=== PATIENT | female | born 1985 | race Caucasian/White ===

== ENCOUNTER 2022-08-13 08:00 | Outpatient (CLI) | payer BC, OTHER ==
[2022-08-13 16:50] LABS: BILIRUBIN,URINE NEGATIVE (NEGATIVE); GLUCOSE, URINE (UA) NEGATIVE (NEGATIVE); KETONES,URINE (UA) NEGATIVE (NEGATIVE); LEUKOCYTE ESTERASE, URINE MODERATE (NEGATIVE); NITRITE,URINE NEGATIVE (NEGATIVE); OCCULT BLOOD,URINE SMALL (NEGATIVE); PH,URINE 6.5 PH (5.0-7.5); PROTEIN,URINE NEGATIVE (NEGATIVE); UROBILINOGEN,URINE 0.2 (NORMAL) E.U./dL (NORMAL)
[2022-08-13 17:41] LABS: BACTERIA,URINE Many /HPF (None Seen); CLARITY,URINE HAZY (CLEAR); SQUAMOUS EPITHELIAL CELL,UR MANY Squamous (<= Few); WBC CLUMPS,URINE PRESENT; WBC,URINE >25 /HPF (0-5)
== END 2022-08-13 23:59 | disposition home or self-care (01) ==
LOC: LAB 08:00
PROVIDERS: ATTEND Nurse Practitioner
DX: Z34.90 Encounter for supervision of normal pregnancy, unspecified, unspecified trimester (principal)
CPT/HCPCS: 81001; 87086

== ENCOUNTER 2022-08-27 08:34 | Outpatient (CLI) | payer BC ==
[2022-08-27 08:59] LABS: BASOPHILS # (AUTO) 0.1 10^3/uL (0.0-0.1); EOSINOPHILS # (AUTO) 0.1 10^3/uL (0.0-0.7); HCT - HEMATOCRIT 41.5 % (37.0-47.0); HGB - HEMOGLOBIN 13.9 g/dL (12.0-16.0); LYMPHOCYTES # (AUTO) 1.7 10^3/uL (1.5-3.5); LYMPHOCYTES % (AUTO) 33.2 %; MEAN CORPUSCULAR HEMOGLOBIN 30.3 pg (27.0-31.0); MEAN CORPUSCULAR HGB CONC 33.5 g/dL (32.0-36.0); MEAN CORPUSCULAR VOLUME 90.6 fL (81.0-99.0); MONOCYTES # (AUTO) 0.4 10^3/uL (0.0-1.0); MONOCYTES % (AUTO) 7.8 %; NEUTROPHILS # (AUTO) 2.9 10^3/uL (1.5-6.6); NEUTROPHILS % (AUTO) 56.6 %; PLT - PLATELET COUNT 195 10^3/uL (130-450); RED BLOOD COUNT 4.58 10^6/uL (4.20-5.40); RED CELL DISTRIBUTION WIDTH 13.4 % (12.0-15.0)
[2022-08-28 02:07] LABS: HBsAG SCREEN Negative (Negative)
[2022-08-28 05:12] LABS: RPR Non Reactive (Non Reactive)
[2022-08-28 08:10] LABS: VARICELLA-ZOSTER AB IGG 312 index (Immune >165)
[2022-08-29 00:08] LABS: HIV SCREEN 4TH GENERATION Non Reactive (Non Reactive)
== END 2022-08-27 08:35 | disposition home or self-care (01) ==
LOC: LAB 08:34
PROVIDERS: ATTEND Nurse Practitioner
DX: Z34.90 Encounter for supervision of normal pregnancy, unspecified, unspecified trimester (principal)
CPT/HCPCS: 36415; 85025; 86592; 86762; 86787; 86803; 86850; 86900; 86901; 87340; 87389

== ENCOUNTER 2022-08-28 18:57 | Outpatient (CLI) | payer BC ==
--- NOTE | 2022-08-29 10:10 | Ultrasound Report ---
PROCEDURE: OB First Trimester w/TV INDICATIONS: POSITIVE TEST OUTSIDE/PRIOR DATING DATA: Last menstrual period (LMP): 07/02/2022. LMP-based estimated date of delivery (RENNY): 04/08/2023. First dating scan (date and location): 08/28/2022. Estimated date of delivery (RENNY) from first dating scan: 04/12/2023. The below data below was generated using the ultrasound RENNY of 04/12/2023 TECHNIQUE: Real-time scanning was performed of the fetus and maternal pelvic organs, with image documentation. Endovaginal scanning was also performed to better visualize the fetus and maternal ovaries. COMPARISON: None. FINDINGS: Single living intrauterine . Embryo: 1.3 cm, 7 weeks 4 days. Heart rate: 150 bpm. Tiny perigestational fluid collection measuring 1.0 x 0.9 x 1.2 cm. Measurement variability in dating: +/- 4 weeks by LMP, +/- 7 days by mean sac diameter (use before 6 weeks gestation if crown-rump length not able to be measured), +/- 5 days by crown-rump length (6-12 weeks gestation). Maternal organs: Ovaries are unremarkable. IMPRESSION: Single living intrauterine at 7 weeks 4 days, RENNY of 04/12/2023. Tiny perigestational fluid collection. Reviewed by: Demetrio Holguin on 08/29/2022 10:09 AM PDT Approved by: Demetrio Holguin on 08/29/2022 10:09 AM PDT Station ID: [id number]
== END 2022-08-28 18:58 | disposition home or self-care (01) ==
LOC: DI 18:57
PROVIDERS: ATTEND Nurse Practitioner
DX: Z34.91 Encounter for supervision of normal pregnancy, unspecified, first trimester (principal)

== ENCOUNTER 2022-09-10 08:00 | Outpatient (CLI) | payer BC ==
[2022-09-10 11:36] LABS: BILIRUBIN,URINE NEGATIVE (NEGATIVE); GLUCOSE, URINE (UA) NEGATIVE (NEGATIVE); KETONES,URINE (UA) NEGATIVE (NEGATIVE); LEUKOCYTE ESTERASE, URINE SMALL (NEGATIVE); NITRITE,URINE NEGATIVE (NEGATIVE); OCCULT BLOOD,URINE MODERATE (NEGATIVE); PROTEIN,URINE NEGATIVE (NEGATIVE); UROBILINOGEN,URINE 0.2 (NORMAL) E.U./dL (NORMAL)
[2022-09-10 11:38] LABS: CLARITY,URINE CLEAR (CLEAR)
[2022-09-10 12:17] LABS: BACTERIA,URINE Few /HPF (None Seen); RBC,URINE 0-5 /HPF (0-5); SQUAMOUS EPITHELIAL CELL,UR MOD Squamous (<= Few)
[2022-09-10 17:59] LABS: CHLAMYDIA TRACHOMATIS DNA NEGATIVE (NEGATIVE); NEISSERIA GONORRHOEAE DNA NEGATIVE (NEGATIVE); TRICHOMONAS VAGINALIS DNA NEGATIVE (NEGATIVE)
== END 2022-09-10 23:59 | disposition home or self-care (01) ==
LOC: LAB.WC 08:00
PROVIDERS: ATTEND Nurse Practitioner
DX: Z34.90 Encounter for supervision of normal pregnancy, unspecified, unspecified trimester (principal); Z11.3 Encounter for screening for infections with a predominantly sexual mode of transmission
CPT/HCPCS: 81001; 87086; 87491; 87591; 87661

== ENCOUNTER 2022-12-10 14:17 | Outpatient (CLI) | payer BC | END 2022-12-10 14:18 | disposition home or self-care (01) | LOC: LAB 14:17 | PROVIDERS: ATTEND Obstetrics & Gynecology | DX: Z32.01 Encounter for pregnancy test, result positive (principal) | CPT/HCPCS: 36415; 84702 ==

== ENCOUNTER 2022-12-12 14:13 | Outpatient (CLI) | payer BC | END 2022-12-12 14:14 | disposition home or self-care (01) | LOC: LAB.N 14:13 | PROVIDERS: ATTEND Obstetrics & Gynecology | DX: Z53.9 Procedure and treatment not carried out, unspecified reason (principal) | CPT/HCPCS: 36415; 84702 ==

== ENCOUNTER 2022-12-12 15:05 | Outpatient (CLI) | payer BC | END 2022-12-12 15:06 | disposition home or self-care (01) | LOC: LAB 15:05 | PROVIDERS: ATTEND Obstetrics & Gynecology | DX: O20.0 Threatened abortion (principal) | CPT/HCPCS: 36415; 84702 ==

== ENCOUNTER 2023-01-04 18:11 | Outpatient (CLI) | payer BC ==
--- NOTE | 2023-01-05 01:45 | Ultrasound Report ---
PROCEDURE: Pelvic w/Transvaginal INDICATIONS: THREATENED SPONTANEOUS OUTSIDE/PRIOR DATING DATA: Last menstrual period (LMP): 10/30/2022. LMP-based estimated date of delivery (RENNY): 08/06/2023. First dating scan (date and location): 01/04/2023. Estimated date of delivery (RENNY) from first dating scan: 08/09/2023. TECHNIQUE: Real-time scanning was performed of the fetus and maternal pelvic organs, with image documentation. Endovaginal scanning was also performed to better visualize the fetus and maternal ovaries. COMPARISON: None from this . FINDINGS: Intrauterine gestational sac present. Embryo: There is an intrauterine gestational sac seen, with a pole present, which measures 2.2 6 cm, which corresponds to an estimated gestational age of 9 weeks 0 days. cardiac activity is seen, with a measured heart rate of 173 bpm. Moderate perigestational/subchorionic hemorrhage can b e seen, which measures 2.3 x 1.8 x 2.8 cm. Measurement variability in dating: +/- 4 weeks by LMP, +/- 7 days by mean sac diameter (use before 6 weeks gestation if crown-rump length not able to be measured), +/- 5 days by crown-rump length (6-12 weeks gestation). Maternal organs: Ovaries appear within normal limits, with note made of a left ovarian corpus luteum . IMPRESSION: Single live intrauterine . Moderate subchorionic hemorrhage can be seen. No significant discrepancy is found between the estimated gestational age based upon these images and the estimated gestational age based upon the given date of the last menstrual period. Close clinical follow-up with serial beta hCG measurements and serial ultrasound would be recommended , as clinically appropriate. Reviewed by: Lm Frazier MD on 01/05/2023 12:43 AM RAY Approved by: Lm Frazier MD on 01/05/2023 12:43 AM RAY Station ID: [id number]
== END 2023-01-04 18:12 | disposition home or self-care (01) ==
LOC: DI 18:11
PROVIDERS: ATTEND Obstetrics & Gynecology
DX: O20.8 Other hemorrhage in early pregnancy (principal); Z3A.00 Weeks of gestation of pregnancy not specified

== ENCOUNTER 2023-01-10 08:00 | Outpatient (CLI) | payer BC ==
[2023-01-10 15:22] LABS: BILIRUBIN,URINE NEGATIVE (NEGATIVE); GLUCOSE, URINE (UA) NEGATIVE (NEGATIVE); KETONES,URINE (UA) NEGATIVE (NEGATIVE); LEUKOCYTE ESTERASE, URINE TRACE (NEGATIVE); NITRITE,URINE NEGATIVE (NEGATIVE); OCCULT BLOOD,URINE NEGATIVE (NEGATIVE); PROTEIN,URINE NEGATIVE (NEGATIVE); UROBILINOGEN,URINE 0.2 (NORMAL) E.U./dL (NORMAL)
[2023-01-10 15:32] LABS: CLARITY,URINE CLEAR (CLEAR)
[2023-01-10 15:42] LABS: BACTERIA,URINE Few /HPF (None Seen); RBC,URINE None Seen /HPF (0-5); SQUAMOUS EPITHELIAL CELL,UR FEW Squamous (<= Few)
== END 2023-01-10 23:59 | disposition home or self-care (01) ==
LOC: LAB.WC 08:00
PROVIDERS: ATTEND Nurse Practitioner
DX: Z34.90 Encounter for supervision of normal pregnancy, unspecified, unspecified trimester (principal)
CPT/HCPCS: 81001; 87086

== ENCOUNTER 2023-02-04 08:00 | Outpatient (CLI) | payer BC ==
[2023-02-04 21:30] LABS: CHLAMYDIA TRACHOMATIS DNA NEGATIVE (NEGATIVE); NEISSERIA GONORRHOEAE DNA NEGATIVE (NEGATIVE); TRICHOMONAS VAGINALIS DNA NEGATIVE (NEGATIVE)
== END 2023-02-04 23:59 | disposition home or self-care (01) ==
LOC: LAB.WC 08:00
PROVIDERS: ATTEND Nurse Practitioner
DX: Z11.3 Encounter for screening for infections with a predominantly sexual mode of transmission (principal)
CPT/HCPCS: 87491; 87591; 87661

== ENCOUNTER 2023-02-12 13:46 | Outpatient (CLI) | payer BC ==
[2023-02-12 14:01] LABS: BASOPHILS % (AUTO) 0.4 %; EOSINOPHILS % (AUTO) 0.5 %; HCT - HEMATOCRIT 40.1 % (37.0-47.0); HGB - HEMOGLOBIN 13.5 g/dL (12.0-16.0); LYMPHOCYTES % (AUTO) 23.2 %; MEAN CORPUSCULAR HEMOGLOBIN 30.3 pg (27.0-31.0); MEAN CORPUSCULAR HGB CONC 33.7 g/dL (32.0-36.0); MEAN CORPUSCULAR VOLUME 89.9 fL (81.0-99.0); MEAN PLATELET VOLUME 10.8 fL (7.9-10.8); MONOCYTES # (AUTO) 0.4 10^3/uL (0.0-1.0); MONOCYTES % (AUTO) 4.4 %; NEUTROPHILS # (AUTO) 6.1 10^3/uL (1.5-6.6); NEUTROPHILS % (AUTO) 71.1 %; PLT - PLATELET COUNT 195 10^3/uL (130-450); RED BLOOD COUNT 4.46 10^6/uL (4.20-5.40); RED CELL DISTRIBUTION WIDTH 12.9 % (12.0-15.0); WHITE BLOOD COUNT 8.6 x10^3/uL (4.8-10.8)
== END 2023-02-12 13:47 | disposition home or self-care (01) ==
LOC: LAB 13:46
PROVIDERS: ATTEND Nurse Practitioner
DX: Z34.90 Encounter for supervision of normal pregnancy, unspecified, unspecified trimester (principal); Z36.89 Encounter for other specified antenatal screening
CPT/HCPCS: 36415; 85025; 86850

== ENCOUNTER 2023-03-19 15:04 | Outpatient (CLI) | payer BC ==
--- NOTE | 2023-03-20 17:54 | Ultrasound Report ---
PROCEDURE: OB Detailed Eval INDICATIONS: SUPERVISION OF OUTSIDE/PRIOR DATING DATA: Last menstrual period (LMP): 10/30/2022. LMP-based estimated date of delivery (RENNY): 01/01/2024. First dating scan (date and location): 01/04/2023. Estimated date of delivery (RENNY) from first dating scan: 08/09/2023. The below data below was generated using the working RENNY of 08/09/2023 TECHNIQUE: Ultrasound of the gravid uterus was performed and recorded. COMPARISON: None. FINDINGS: General: A single live intrauterine gestation is present. Presentation: Cephalic Placenta: Placental position is posterior without previa. Amniotic fluid index: 17.6 cm, 80th percentile for gestational age. heart rate: 150 beats per minute. Maternal cervical canal: 3.7 cm long; normal length is 2.5 cm or more. biometrics: Biparietal diameter: 5.1 cm, 21 week 3 day, 98 percentile Head circumference: 18.2 cm, 20 week 4 day, 86 percentile Abdominal circumference: 15.4 cm, 20 week 4 day, 78 percentile Femur length: 3.2 cm, 20 week 0 day, 59th percentile Estimated gestational age by working dates: 19 week 4 day Composite gestational age by current ultrasound: 20 week 5 day Estimated weight and percentile: 352 g, 89th percentile Measurement variability in biometric dating: +/- 10 days from 12-20 weeks gestation, +/- 2 weeks from 20-30 weeks gestation, +/- 3 weeks at 30 weeks gestation or more. Anatomic survey: Neuro: Ventricles are non-dilated at less than 10 mm. Cisterna magna is normal at 3-11 mm. Cerebel lum is normal in size and morphology. Nuchal skin fold: Normal at less than 6 mm between 14-20 weeks gestational age. Face: Nose and lips, facial profile are normal. Spine: No evidence for spina bifida. Heart: 4-chambered heart is present, with normal ventricular outflow tracts. Incidental echogenic f ocus in the left ventricular outflow tract Diaphragm: Diaphragm is intact. Stomach: Left-sided stomach is present. Kidneys: No hydronephrosis. Normal is less than 5 mm in 2nd trimester, less than 7 mm in 3rd trimester. Cord: 3-vessel cord has orthotopic insertion. Bladder: Normal in size. Extremities: All 4 extremities identified. Other: Not applicable. IMPRESSION: Single live intrauterine consistent with 20 week 5 day with gestation by current ultrasound Incidental left ventricular intracardiac echogenic focus Reviewed by: Andrei Damon MD on 03/20/2023 4:52 PM [facility] Approved by: Andrei Damon MD on 03/20/2023 4:52 PM [facility] Station ID: [id number]
== END 2023-03-19 15:05 | disposition home or self-care (01) ==
LOC: DI 15:04
PROVIDERS: ATTEND Nurse Practitioner
DX: Z34.92 Encounter for supervision of normal pregnancy, unspecified, second trimester (principal); Z36.89 Encounter for other specified antenatal screening

== ENCOUNTER 2023-03-20 10:02 | Outpatient (CLI) | payer BC ==
[2023-03-22 22:06] LABS: AFP VALUE 62.7 ng/mL (.); GEST. AGE ON COLLECTION DATE 18.4 weeks (.); INSULIN DEP DIABETES No (.); MULTIPLE GESTATION No (.); OPEN SPINA BIFIDA RISK 1 IN 2100 (.); RACE Caucasian (.); RESULTS Report (.); TEST RESULTS *Screen Negative* (.); WEIGHT 197 lbs (.)
== END 2023-03-20 10:03 | disposition home or self-care (01) ==
LOC: LAB 10:02
PROVIDERS: ATTEND Nurse Practitioner
DX: O09.522 Supervision of elderly multigravida, second trimester (principal)
CPT/HCPCS: 36415; 82105

== ENCOUNTER 2023-05-06 11:14 | Outpatient (CLI) | payer BC ==
[2023-05-06 12:23] LABS: HCT - HEMATOCRIT 37.6 % (37.0-47.0); HGB - HEMOGLOBIN 12.1 g/dL (12.0-16.0); MEAN CORPUSCULAR HEMOGLOBIN 29.7 pg (27.0-31.0); MEAN CORPUSCULAR HGB CONC 32.2 g/dL (32.0-36.0); MEAN CORPUSCULAR VOLUME 92.2 fL (81.0-99.0); MEAN PLATELET VOLUME 10.8 fL (7.9-10.8); RED BLOOD COUNT 4.08 10^6/uL (4.20-5.40); RED CELL DISTRIBUTION WIDTH 13.3 % (12.0-15.0); WHITE BLOOD COUNT 9.8 x10^3/uL (4.8-10.8)
== END 2023-05-06 11:15 | disposition home or self-care (01) ==
LOC: LAB 11:14
PROVIDERS: ATTEND Nurse Practitioner
DX: O09.522 Supervision of elderly multigravida, second trimester (principal)
CPT/HCPCS: 36415; 82950; 85027

== ENCOUNTER 2023-06-28 12:26 | Outpatient (CLI) | payer BC ==
--- NOTE | 2023-07-01 14:22 | Ultrasound Report ---
PROCEDURE: OB Follow up INDICATIONS: UTERINE SIZE DATE DISCREPENCY OUTSIDE/PRIOR DATING DATA: Last menstrual period (LMP): 10/29/2022. LMP-based estimated date of delivery (RENNY): 08/06/2023. First dating scan (date and location): 01/04/2023. Estimated date of delivery (RENNY) from first dating scan: 08/09/2023. The below data below was generated using the ultrasound RENNY of 08/09/2023 TECHNIQUE: Real-time scanning was performed of the fetus, with image documentation and biometric measurements. Endovaginal scanning: Not performed. COMPARISON: None. FINDINGS: General: A single living intrauterine gestation is present. Presentation: Cephalic Placenta: Placental position is posterior, without previa. Amniotic fluid index: 22.5 cm, 90.1 percentile for gestational age. heart rate: 137 beats per minute. Maternal cervical canal: 3.9 cm long; normal length is 2.5 cm or more. biometrics: Biparietal diameter: 9.1 cm, 37 weeks 0 days, 98th percentile Head circumference: 32.3 cm, 36 weeks 4 days, 78.4 percentile Abdominal circumference: 30.9 cm, 34 weeks 6 days, 79 percentile Femur length: 7.1 cm, 36 weeks 4 days, 94 percentile Estimated gestational age from initial scan: 34 weeks 0 days Composite gestational age from present scan: 36 weeks 2 days Estimated weight and percentile: 2761 g, 90th percentile Measurement variability in biometric dating: +/- 10 days from 12-20 weeks gestation, +/- 2 weeks from 20-30 weeks gestation, +/- 3 weeks at 30 weeks gestation or more. Other: Not applicable. IMPRESSION: Single living intrauterine at 34 weeks 0 days, RENNY of 08/09/2023. Estimated weight of 2761 g, 90th percentile. LETTY of 22.5 cm. Reviewed by: Demetrio Holguin MD on 07/01/2023 2:21 PM PST Approved by: Demetrio Holguin MD on 07/01/2023 2:21 PM PST Station ID: [id number]
== END 2023-06-28 12:27 | disposition home or self-care (01) ==
LOC: DI 12:26
PROVIDERS: ATTEND Nurse Practitioner
DX: O26.843 Uterine size-date discrepancy, third trimester (principal); Z3A.34 34 weeks gestation of pregnancy

== ENCOUNTER 2023-07-11 08:00 | Outpatient (CLI) | payer BC | END 2023-07-11 23:59 | disposition home or self-care (01) | LOC: LAB.WC 08:00 | PROVIDERS: ATTEND Nurse Practitioner | DX: Z36.85 Encounter for antenatal screening for Streptococcus B (principal) | CPT/HCPCS: 87797 ==

== ENCOUNTER 2023-07-18 08:57 | Outpatient (CLI) | payer BC ==
--- NOTE | 2023-07-18 09:17 | PROCEDURE REPORT ---
- HPI Diagnosis/Indication for NST: Other (Advanced maternal age) - Results and Plan Plan: Patient is a 38-year-old -0-1-0 at 37 weeks 2 days gestation here for NST. NST Performed 07/18/2023 NST Read 07/18/2023 FHT: 140 bpm baseline, moderate variability, accelerations present, no decelerations. Reactive NST [place]: Quiescent Diagnosis 37 weeks gestation Advanced maternal age Continue with scheduled OB care
[2023-07-18 09:23] VITALS: BP 115/86; O2SAT 98
== END 2023-07-18 09:38 | disposition home or self-care (01) ==
LOC: WFO 08:57 → FBP 09:00 → WFO 09:38
PROVIDERS: ATTEND Obstetrics & Gynecology
DX: O09.523 Supervision of elderly multigravida, third trimester (principal); Z3A.37 37 weeks gestation of pregnancy
CPT/HCPCS: 59025

== ENCOUNTER 2023-07-23 10:42 | Outpatient (CLI) | payer BC ==
--- NOTE | 2023-07-23 12:46 | Ultrasound Report ---
PROCEDURE: OB Follow up INDICATIONS: UTERINE SIZE DATE DISCREPENCY OUTSIDE/PRIOR DATING DATA: Last menstrual period (LMP): 10/30/2022. LMP-based estimated date of delivery (RENNY): 08/06/2023. First dating scan (date and location): 01/04/2023. Estimated date of delivery (RENNY) from first dating scan: 08/09/2023. TECHNIQUE: Real-time scanning was performed of the fetus, with image documentation and biometric measurements. COMPARISON: 06/28/2023 FINDINGS: General: A single living intrauterine gestation is present. Presentation: Cephalic Placenta: Placental position is posterior, without previa. Amniotic fluid index: 22.5 cm, at the upper limit of normal for gestational age. heart rate: 137 beats per minute. Maternal cervical canal: 3.9 cm long; normal length is 2.5 cm or more. biometrics: Biparietal diameter: 9.13 cm, 37 weeks, 98th percentile Head circumference: 32.3 cm, 36 weeks and 4 days, 78.4 percentile Abdominal circumference: 30.9 cm, 34 weeks and 6 days, 79 percentile Femur length: 7.14 cm, 36 weeks and 4 days, 94th percentile Estimated gestational age from initial scan: 34 weeks Composite gestational age from present scan: 36 weeks and 2 days Estimated weight and percentile: 2761 g, 89.9 percentile Measurement variability in biometric dating: +/- 10 days from 12-20 weeks gestation, +/- 2 weeks from 20-30 weeks gestation, +/- 3 weeks at 30 weeks gestation or more. Other: Not applicable. IMPRESSION: Living intrauterine gestation at 34 weeks. EFW and LETTY are at the upper limit of normal (22.5 cm, 89.9 percentile). Consider continued clinical and possible imaging follow-up. Reviewed by: Julius Arreola MD on 07/23/2023 12:44 PM PDT Approved by: Julius Arreola MD on 07/23/2023 12:44 PM PDT Station ID: [id number]
== END 2023-07-23 10:43 | disposition home or self-care (01) ==
LOC: DI 10:42
PROVIDERS: ATTEND Nurse Practitioner
DX: O26.843 Uterine size-date discrepancy, third trimester (principal); Z3A.34 34 weeks gestation of pregnancy

== ENCOUNTER 2023-07-25 08:55 | Outpatient (CLI) | payer BC ==
[2023-07-25 09:15] VITALS: BP 132/90
[2023-07-25 09:45] LABS: HCT - HEMATOCRIT 35.6 % (37.0-47.0); HGB - HEMOGLOBIN 11.2 g/dL (12.0-16.0); MEAN CORPUSCULAR HEMOGLOBIN 26.9 pg (27.0-31.0); MEAN CORPUSCULAR HGB CONC 31.5 g/dL (32.0-36.0); MEAN CORPUSCULAR VOLUME 85.6 fL (81.0-99.0); MEAN PLATELET VOLUME 12.1 fL (7.9-10.8); RED BLOOD COUNT 4.16 10^6/uL (4.20-5.40); RED CELL DISTRIBUTION WIDTH 14.6 % (12.0-15.0); WHITE BLOOD COUNT 7.8 x10^3/uL (4.8-10.8)
[2023-07-25 10:01] LABS: ALBUMIN 3.2 g/dL (3.2-5.5); ALBUMIN/GLOBULIN RATIO 1.2 (1.0-2.2); BILIRUBIN,TOTAL 0.7 mg/dL (0.2-1.0); CALCIUM 9.1 mg/dL (8.5-10.3); CREATININE 0.6 mg/dL (0.6-1.3); TOTAL PROTEIN 5.9 g/dL (6.4-8.9)
[2023-07-25 10:10] LABS: PROTEIN/CREATININE RATIO,URINE 0.2 (<=0.2)
--- NOTE | 2023-07-25 20:29 | PROCEDURE REPORT ---
- HPI Diagnosis/Indication for NST: Other (AMA) Current EDU 08/06/23 Gestation 38 Weeks and 2 Days 2 Para 0 Vital Signs Temperature 98.2 F 07/25/23 09:10 Heart Rate 68 07/25/23 09:10 Respiratory Rate 16 07/25/23 09:10 Blood Pressure 132/90 H 07/25/23 09:10 Temperature 98.2 F 07/25/23 09:10 Heart Rate 68 07/25/23 09:10 Respiratory Rate 16 07/25/23 09:10 Blood Pressure 132/90 H 07/25/23 09:10 O2 Saturation If not protocol: Oxygen Flow, liters/minute - NST Procedure NST Procedure Start Date 07/25/23 Start Time 09:03 Stop Time 09:40 Vibroacoustic Stimulation Used No Patient States Movement Yes Reactive for of 32 weeks gestation or more. NST tracing contains at least two heart rate accelerations that are at least 15 beats per minute above the baseline rate and lasting at least 15 seconds from onset to return to baseline within a twenty minute period. - Results and Plan Findings/Impression: reactive NST bp borderline. labs checked and normal. will continue to follow. Plan: care as scheduled.
== END 2023-07-25 09:50 | disposition home or self-care (01) ==
LOC: WFO 08:55 → FBP 08:59 → WFO 09:50
PROVIDERS: ATTEND Obstetrics & Gynecology
DX: O26.843 Uterine size-date discrepancy, third trimester (principal); Z3A.38 38 weeks gestation of pregnancy
CPT/HCPCS: 36415; 59025; 80053; 82570; 84156; 84550; 85027

== ENCOUNTER 2023-08-01 10:18 | Outpatient (CLI) | payer BC ==
[2023-08-01 10:54] VITALS: BP 129/86; O2SAT 99
--- NOTE | 2023-08-01 18:23 | PROCEDURE REPORT ---
- HPI Diagnosis/Indication for NST: Other (Advanced maternal age) Current EDU 08/06/23 Gestation 39 Weeks and 2 Days 2 Para 0 Vital Signs Temperature 98.8 F 08/01/23 10:43 Heart Rate 66 08/01/23 10:43 Respiratory Rate 16 08/01/23 10:43 Blood Pressure 129/86 H 08/01/23 10:43 O2 Saturation 99 08/01/23 10:43 Temperature 98.1 F 08/01/23 11:09 Heart Rate 66 08/01/23 10:43 Respiratory Rate 16 08/01/23 10:43 Blood Pressure 129/86 H 08/01/23 10:43 O2 Saturation 99 08/01/23 10:43 If not protocol: Oxygen Flow, liters/minute - NST Procedure NST Procedure Start Date 08/01/23 Start Time 10:35 Stop Time 11:09 Vibroacoustic Stimulation Used No Patient States Movement Yes - Results and Plan Plan: Patient is a 38-year-old -0-1-0 at 39 weeks 1 day gestation here for NST. NST Performed 08/01/2023 NST Read 08/01/2023 FHT: 140 bpm baseline, moderate variability, accelerations present, no decelerations. Reactive NST [place]: Quiescent Diagnosis 39 weeks gestation Advanced maternal age Continue with scheduled OB care
== END 2023-08-01 11:09 | disposition home or self-care (01) ==
LOC: WFO 10:18 → FBP 10:25 → WFO 11:09
PROVIDERS: ATTEND Obstetrics & Gynecology
DX: O09.523 Supervision of elderly multigravida, third trimester (principal); Z3A.39 39 weeks gestation of pregnancy
CPT/HCPCS: 59025

== ENCOUNTER 2023-08-04 20:03 | Inpatient (IN) | payer BC ==
[2023-08-04] MEDS ORDERED: miSOPROStoL 200 MCG TABLET PR PRN ×2 (21:18→23:53)
[2023-08-04] MEDS ORDERED: hydrALAZINE INJ 20 MG/ML VIAL IVP PRN ×4 (21:18→23:53)
[2023-08-04] MEDS ORDERED: ACETAMINOPHEN 500 MG TABLET PO PRN ×3 (21:18→23:59)
[2023-08-04] MEDS ORDERED: CARBOPROST TROMETHAMINE 250 MCG/ML VIAL IM PRN ×2 (21:18→23:53)
[2023-08-04] MEDS ORDERED: METHYLERGONOVINE 0.2 MG/ML VIAL IM PRN ×2 (21:18→23:53)
[2023-08-04] MEDS ORDERED: NIFEdipine 10 MG CAPSULE PO PRN ×2 (21:18→23:53)
[2023-08-04] MEDS ORDERED: SODIUM CHLORIDE FLUSH 0.9% 10 ML SYRINGE IVP PRN (21:18)
[2023-08-04] MEDS ORDERED: METOCLOPRAMIDE 10 MG/2 ML VIAL IVP PRN (21:18)
[2023-08-04] MEDS ORDERED: ONDANSETRON 4 MG/2 ML VIAL IVP PRN (21:18)
[2023-08-04] MEDS ORDERED: OXYTOCIN/SODIUM CHLORIDE 500 ML IV PRN ×2 (21:18→23:53)
[2023-08-04] MEDS ORDERED: TERBUTALINE 1 MG/ML VIAL SUBQ PRN ×2 (21:18→23:53)
[2023-08-04] MEDS ORDERED: OXYTOCIN 10 UNIT/ML VIAL IM PRN ×2 (21:18→23:53)
[2023-08-04] MEDS ORDERED: TRANEXAMIC ACID IN NACL 1,000 MG/100 ML BAG IV PRN ×2 (21:18→23:53)
[2023-08-04] MEDS ORDERED: fentaNYL 100 MCG/2 ML VIAL IVP PRN (21:18)
[2023-08-04] MEDS ORDERED: lidocaine 1% 20 ML MDV ID PRN ×2 (21:18→23:53)
[2023-08-04] MEDS ORDERED: CALCIUM CARBONATE CHEW 500 MG TABLET PO PRN (21:18)
[2023-08-04] MEDS ORDERED: LABETALOL 20 MG/4 ML SYRINGE IVP PRN ×6 (21:18→23:53)
[2023-08-04] MEDS ORDERED: miSOPROStoL 200 MCG TABLET BC PRN ×2 (21:18→23:53)
--- NOTE | 2023-08-04 21:44 | HISTORY & PHYSICAL EXAMINATION ---
Admit History - Visit Reason Visit Reason: Other (labor induction) - : 1 Care: positive: [facility] Risk/History: positive: None Complications This : positive: Other (Covid) - Mother's Labs GBS: positive: Group B Step Negative - Other Maternal History Other Maternal History: 38 yo with IUP at 39w 5 d presents for labor induction. last ultrasound was 07/23/23: FINDINGS: General: A single living intrauterine gestation is present. Presentation: Cephalic Placenta: Placental position is posterior, without previa. Amniotic fluid index: 22.5 cm, at the upper limit of normal for gestational age. heart rate: 137 beats per minute. Maternal cervical canal: 3.9 cm long; normal length is 2.5 cm or more. biometrics: Biparietal diameter: 9.13 cm, 37 weeks, 98th percentile Head circumference: 32.3 cm, 36 weeks and 4 days, 78.4 percentile Abdominal circumference: 30.9 cm, 34 weeks and 6 days, 79 percentile Femur length: 7.14 cm, 36 weeks and 4 days, 94th percentile Estimated gestational age from initial scan: 34 weeks Composite gestational age from present scan: 36 weeks and 2 days Estimated weight and percentile: 2761 g, 89.9 percentile Measurement variability in biometric dating: +/- 10 days from 12-20 weeks ges tation, +/- 2 weeks from 20-30 weeks gestation, +/- 3 weeks at 30 weeks gestation or more. Other: Not applicable. IMPRESSION: Living intrauterine gestation at 34 weeks. EFW and LETTY are at the upper limit of 07/23/2023 12:50PM (GMT-07:00) No Known Allergies Medications: Meds Reviewed: Done * Electric Breast Pump Use 1 device as directed as directed USE TO EXPRESS MILK ACCORDING TO BABY'S NEEDS Z39.1 RENNY 08/06/2023 * Tums (calcium carbonate) * vitamin * ASA-calcium [id number] tablet * Miralax (polyethylene glycol 3350) Problems: Blood pressure check (ICD-V81.1) (CBY68-Z97.6) Supervision of elderly multigravida, third trimester (ICD-V23.82) (ICD10- O09.523) Encounter for screening for Streptococcus B (HBD98-W70.85) Uterine size-date discrepancy, third trimester (ICD-649.63) (LLS06-E52.843) Anxiety (ICD-300.00) (IQT91-S17.9) Other viral diseases complicating , second trimester (ICD-647.63) (WNK94-N53.512) Past Medical History: Anxiety Covid 2022 duiring Past Surgical History: Unremarkable Vital Signs: Patient Profile: 38 Years Old Female Height: 71 inches Weight: 234.8 pounds BMI: 32.87 BP sittin / 74 Vitals Entered By: Sarah Dillard LPN (August 01, 2023 11:27 AM) Meds Reviewed: Done Allergies Reviewed: Done No known allergies: T Flowsheet View for Follow-up Visit Estimated weeks of gestation: 39 2/7 Weight: 234.8 Blood pressure: 132 / 74 LMP: 10/30/2022 RENNY by LMP: 08/09/2023 01/04/2023/9+0/ C/W LMP Final RENNY: 08/09/2023 37yo G1 (and first grandbaby on both sides) does not look like we have discussed NSTs for AMA. covid. starting 36 weeks. AMA: - cfDNA wnl, AFP wnl, FAS wnl. - G1 on ASA FOB [place]aveen, not [employer] - she grew up here, they both work remotely, excited to raise their family here. 1. COVID-19 infection at 21+6 weeks. 2. S>D: EFW pending. 07/22- 89th%ile Pre- Weight:194.2 BMI:27.18 Blood type: A+ Antibody: negative CBC: PLT 195 HCT 41.5 HGB 13.9 RUB: immune VZV: immune HBsAg: negative HepC: N-R RPR/AB-EIA: N-R HIV: N-R PAP: 06-22-2022 normal GC/CT: 02/04 negative HSV: denies self and partner Genetic testin/17 MaterniT- Screen Negative; 03/20/2023 AFP- Negative Covid: recv'd all Flu: rcv'd over 2022 FAS: 03/19/2023 Placenta: Posterior Cord: 3VC LETTY: 17.6 EFW: 352g; 89%tile 50gm OGCT: 104 3HR GTT: TDAP: given 05/30 Breast Pump: given 05/30 3rd trimester: PLT 224 HGB 37.6 HCT 12.1 GBS: 07/11/2023 Negative Gender ID Identifies as Female P: 0 A: 1 SAB: 1 LMP: 10/30/2022 EDC: 08/06/2023 Height: 71 (06/26/2023 3:35:59 PM) Weight: 234.8 Weight (pre-): 194.2 (01/10/2023 12:56:43 PM) Chlamydia: NEGATIVE (02/04/2023 2:30:00 PM) Group B: NEGATIVE (07/11/2023 10:12:00 AM) Blood Type: A+ (08/27/2022 10:53:16 AM) RH Type: + (08/27/2022 10:53:22 AM) Last Antibody Screen: negative (08/27/2022 10:53:31 AM) Is pt sexually active? yes Chlamydia: NEGATIVE (02/04/2023 2:30:00 PM) RPR: Non Reactive (08/27/2022 8:51:00 AM) Last Pap: Normal (06/22/2022 11:50:44 AM) Next pap due: 06/22/2023 (06/28/2022 11:49:16 AM) History of Colpo - HPI Diagnosis/Indication for NST: Other (induction, AMA) - NST Procedure NST Procedure Start Time 10:35 Stop Time 11:09 - Results and Plan Findings/Impression: Reactive for of 32 weeks gestation or more. NST tracing contains at least two heart rate accelerations that are at least 15 beats per minute above the baseline rate and lasting at least 15 seconds from onset to return to baseline within a twenty minute period. Plan: proceed with labor induction Review of Systems - Cardiovascular Cariovascular: denies: Chest pain - Gastrointestinal Gastrointestinal: denies: Abdominal pain, Nausea, Vomiting - Neurological Neurological: denies: Headache Physical - Abdominal Exam Contraction Frequency (min/apart): irreg and infrequent Contraction Intensity: positive: Mild Uterine Resting Tone: positive: Soft - Monitoring Strip Review: positive: Category I - Presentation Presentation: positive: Vertex - Vaginal Exam Membranes: positive: Membranes intact Dilation (in cm): 2 per RN - Speculum Exam Speculum Exam Performed: positive: No Plan for Labor - Plan For Labor I expect patient to be DC'd or transferred within 96 hours.: Yes Plan for Labor: TErm here for labor induction at term. induction process reviewed and consents signed. will start with miso. does want epidural. plan reviewed. here wiht Naveen, her . questions answered.
[2023-08-04] MEDS ORDERED: SODIUM CHLORIDE FLUSH 0.9% 10 ML SYRINGE IVP SCH (22:00)
[2023-08-04] MEDS ORDERED: OXYTOCIN/SODIUM CHLORIDE 500 ML IV SCH (22:00)
[2023-08-04] MEDS ORDERED: LACTATED RINGERS 1,000 ML ONE (22:10)
[2023-08-04] MEDS: miSOPROStoL 100 MCG TABLET VG SCH (22:18)
[2023-08-04 23:02] LABS: BASOPHILS % (AUTO) 0.3 %; EOSINOPHILS % (AUTO) 0.3 %; HCT - HEMATOCRIT 36.2 % (37.0-47.0); HGB - HEMOGLOBIN 11.3 g/dL (12.0-16.0); LYMPHOCYTES # (AUTO) 2.3 10^3/uL (1.5-3.5); LYMPHOCYTES % (AUTO) 22.7 %; MEAN CORPUSCULAR HEMOGLOBIN 26.4 pg (27.0-31.0); MEAN CORPUSCULAR HGB CONC 31.2 g/dL (32.0-36.0); MEAN CORPUSCULAR VOLUME 84.6 fL (81.0-99.0); MEAN PLATELET VOLUME 12.7 fL (7.9-10.8); MONOCYTES # (AUTO) 0.5 10^3/uL (0.0-1.0); MONOCYTES % (AUTO) 5.2 %; NEUTROPHILS # (AUTO) 7.3 10^3/uL (1.5-6.6); NEUTROPHILS % (AUTO) 70.6 %; PLT - PLATELET COUNT 191 10^3/uL (130-450); RED BLOOD COUNT 4.28 10^6/uL (4.20-5.40); RED CELL DISTRIBUTION WIDTH 15.4 % (12.0-15.0); WHITE BLOOD COUNT 10.3 x10^3/uL (4.8-10.8)
[2023-08-05] MEDS: LACTATED RINGERS 1,000 ML IV SCH (00:20)
[2023-08-05] MEDS: miSOPROStoL 100 MCG TABLET VG SCH (04:00)
[2023-08-05] MEDS ORDERED: FAMOTIDINE 20 MG/2 ML VIAL IVP SCH (09:00)
[2023-08-05] MEDS: SODIUM CHLORIDE FLUSH 0.9% 10 ML SYRINGE IVP PRN (09:11)
--- NOTE | 2023-08-05 09:38 | PROVIDER PROGRESS NOTE ---
Labor Progress Note - Uterine Monitoring Uterine Monitoring Mode: positive: External toco Contraction Frequency (min/apart): Irregular.Occasionally picking up. Contraction Intensity: positive: Mild to moderate - Monitoring Monitor Mode: positive: External ultrasound Heart Rate Baseline: 150 Heart Rate Variability: positive: Moderate (6-25 bmp) Accelerations: positive: Present, 15x15 Decelerations: positive: None Strip Review: positive: Category I - Labor Progress Note Labor Progress Note/Additional Text: Received third dose of misoprostol. category 1 . Contractions difficult to trace, but present. Occasionally ever few minutes then harder to tell. Feels comfortable but occasional painful contraction. Continue cervical ripening.
--- NOTE | 2023-08-05 17:01 | ANESTHESIA ---
Pre-Anesthesia VS, & Labs - Diagnosis term labor, IUP, labor pain - Procedure epidural for Vital Signs: Temp Pulse Resp BP Pulse Ox O2 Flow Rate 36.7 C 68 18 139/88 H 08/04/23 22:25 08/04/23 22:25 08/04/23 22:25 08/04/23 22:25 Height: 5 ft 10 in Weight (kg): 106.141 kg Body Mass Index: 33.5 BMI Classification: Obese - NPO Last Fluid Intake: t/o afternoon Last Food Intake: lunch - Is Patient ?: Yes - Lab Results Current Lab Results: Laboratory Tests 08/04/23 22:15: WBC 10.3, RBC 4.28, Hgb 11.3 L, Hct 36.2 L, MCV 84.6, MCH 26.4 L , MCHC 31.2 L, RDW 15.4 H, Plt Count 191, MPV 12.7 H, Neut # (Auto) 7.3 H, Lymph # (Auto) 2.3, [place] # (Auto) 0.5, Eos # (Auto) 0.0, Baso # (Auto) 0.0, Absolute Nucleated RBC 0.00, Nucleated RBC % 0.0 08/04/23 22:15: Blood Type A POSITIVE, Antibody Screen NEGATIVE Lab results reviewed: Yes Fish Bones: 08/04/23 22:15 Home Medications and Allergies Active Medications Acetaminophen (Acetaminophen 500 Mg Tablet) 1,000 mg PO Q8H PRN PRN Reason: Mild Pain or Fever>38C(100.4F) Carboprost Tromethamine (Carboprost Tromethamine 250 Mcg/Ml Vial) 250 mcg IM .ONCE PRN PRN Reason: Hemorrhage Fentanyl (Fentanyl 100 Mcg/2 Ml Vial) 50 mcg IVP Q1H PRN PRN Reason: Severe Pain (score 7-10) Hydralazine HCl (Hydralazine Inj 20 Mg/Ml Vial) 5 - 10 mg IVP Q20M PRN; Protocol PRN Reason: SBP> or= 160 OR DBP> or= 110 Hydralazine HCl (Hydralazine Inj 20 Mg/Ml Vial) 10 mg IVP .ONCE PRN; Protocol PRN Reason: SBP> or= 160 OR DBP> or= 110 Lactated Ringer's (Lr) 500 mls @ 999 mls/hr IV PRN PRN PRN Reason: resuscitation Oxytocin/Sodium Chloride (Pitocin/Sodium Chloride) 500 mls @ 999 mls/hr IV PRN PRN; Protocol PRN Reason: POST- HEMORR PREVENTION Tranexamic Acid (Tranexamic 1,000 Mg/100ml-Nacl) 1,000 mg in 100 mls @ 600 mls/hr IV Q30M PRN PRN Reason: EBL >1200mL and within 3hr Lactated Ringer's (Lr) 1,000 mls @ 125 mls/hr IV .Q8H [facility] Last Admin: 08/05/23 00:20 Dose: Not Given Labetalol HCl (Labetalol 20 Mg/4 Ml Syringe) 20 - 80 mg IVP Q10M PRN; Protocol PRN Reason: SBP> or= 160 OR DBP> or= 110 Labetalol HCl (Labetalol 20 Mg/4 Ml Syringe) 20 mg IVP .ONCE PRN; Protocol PRN Reason: SBP> or= 160 OR DBP> or= 110 Labetalol HCl (Labetalol 20 Mg/4 Ml Syringe) 20 - 40 mg IVP Q10M PRN; Protocol PRN Reason: SBP> or= 160 OR DBP> or= 110 Lidocaine HCl (Lidocaine 1% 20 Ml Mdv) 20 ml ID .ONCE PRN PRN Reason: PERINEAL REPAIR Stop: 08/07/23 23:53 Methylergonovine Maleate (Methylergonovine 0.2 Mg/Ml Vial) 0.2 mg IM .ONCE PRN PRN Reason: Hemorrhage Misoprostol (Misoprostol 200 Mcg Tablet) 600 mcg BC .ONCE PRN PRN Reason: Hemorrhage Misoprostol (Misoprostol 200 Mcg Tablet) 800 mcg MO .ONCE PRN PRN Reason: Hemorrhage Misoprostol (Misoprostol 100 Mcg Tablet) 25 mcg VG Q4H [facility] Stop: 08/05/23 18:01 Last Admin: 08/05/23 12:46 Dose: 25 mcg Nifedipine (Nifedipine 10 Mg Capsule) 10 - 20 mg PO Q20M PRN; Protocol PRN Reason: SBP> or= 160 OR DBP> or= 110 Oxytocin (Oxytocin 10 Unit/Ml Vial) 10 unit IM .ONCE PRN PRN Reason: Step One if no IV access. Sodium Chloride (Sodium Chloride Flush 0.9% 10 Ml Syringe) 10 ml IVP PRN PRN PRN Reason: NEEDED PER PROVIDER ORDERS Last Admin: 08/05/23 09:11 Dose: 10 ml Terbutaline Sulfate (Terbutaline 1 Mg/Ml Vial) 0.25 mg SUBQ .ONCE PRN PRN Reason: Tachystole Allergies/Adverse Reactions: Allergies Allergy/AdvReac Type Severity Reaction Status Date / Time No Known Drug Allergies Allergy Verified 08/04/23 23:28 Anes History & Medical History - Anesthetic History Anesthesia Complications: reports: No previous complications Family history of Anesthesia Complications: Denies Family history of Malignant Hyperthermia: Denies - Medical History Cardiovascular: reports: None Pulmonary: reports: None Gastrointestinal: reports: GERD Musculoskeletal: reports: None Endocrine/Autoimmune: reports: None Skin: reports: None Smoking Status: Never smoker History of Cancer?: No - Surgical History Other Past Surgical History: none noted - Obstetrical History : 1 Events: reports: None Complications: reports: Other (Covid) Exam General: Alert, Oriented x3, Cooperative Dental: WNL Respiratory: Respiratory distress Cardiovascular: Regular rate Neurological: Normal speech Mental/Cognitive Status: Normal for patient Cognitive Status: Within normal limits Plan Anesthesia Type: Epidural Consent for Procedure(s) Verified and Reviewed: Yes Code Status: Attempt Resuscitation ASA classification: 2-Mild systemic disease Is this case an emergency?: No
--- NOTE | 2023-08-05 21:13 | PROVIDER PROGRESS NOTE ---
Labor Progress Note - Uterine Monitoring Uterine Monitoring Mode: positive: External toco Contraction Frequency (min/apart): Irregular - Monitoring Monitor Mode: positive: External ultrasound Heart Rate Baseline: 135 Heart Rate Variability: positive: Moderate (6-25 bmp) Accelerations: positive: Present, 15x15 Decelerations: positive: None - Labor Progress Note Labor Progress Note/Additional Text: Patient tolerating cervical ripening well. Last checked /-2 by RN at 1628. Will do 1 additional dose of misoprostol, then start oxytocin 4 hours later. Comfortable and will try to get some rest tonight.
[2023-08-05] MEDS: fentaNYL 100 MCG/2 ML VIAL IVP PRN (23:28)
[2023-08-06] MEDS ORDERED: ROPIVACAINE 0.2% 200 MG/100 ML BAG EP ONE (00:05)
[2023-08-06] MEDS ORDERED: LIDOCAINE 2%-EPI 1:100000 20 ML MDV ONE (00:16)
[2023-08-06] MEDS ORDERED: METOCLOPRAMIDE 10 MG/2 ML VIAL IVP PRN (00:55)
[2023-08-06] MEDS ORDERED: diphenhydrAMINE INJ 50 MG/ML VIAL IVP PRN (00:55)
[2023-08-06] MEDS ORDERED: NALBUPHINE 10 MG/ML AMP IVP PRN (00:55)
[2023-08-06] MEDS ORDERED: NALOXONE 0.4 MG/ML VIAL IVP PRN (00:55)
[2023-08-06] MEDS ORDERED: ePHEDrine 50 MG/ML VIAL IVP PRN (00:55)
[2023-08-06] MEDS: LACTATED RINGERS 1,000 ML IV PRN (02:09)
[2023-08-06] MEDS: OXYTOCIN/SODIUM CHLORIDE 500 ML IV SCH (03:01)
[2023-08-06] MEDS: ROPIVACAINE 0.2% 200 MG/100 ML BAG EP PRN (07:32)
[2023-08-06] MEDS: ONDANSETRON 4 MG/2 ML VIAL IVP PRN (07:43)
[2023-08-06] MEDS ORDERED: ONDANSETRON 4 MG/2 ML VIAL IVP PRN (14:16)
[2023-08-06] MEDS ORDERED: CALCIUM CARBONATE CHEW 500 MG TABLET PO PRN (14:16)
[2023-08-06] MEDS ORDERED: SIMETHICONE CHEW 80 MG TABLET PO PRN (14:16)
--- NOTE | 2023-08-06 14:21 | DELIVERY NOTE ---
Delivery Note - Labor Labor: positive: Augmented by oxytocin - Delivery Method Delivery Method: positive: Spontaneous vaginal delivery - Cervical Ripening Method Cervical Ripening Method: positive: Misoprostil - Presentation Presentation: positive: PIETRO - left occiput anterior - Nuchal Cord Nuchal Cord: positive: None - Anesthetic Anesthetic Type: - Amniotic Fluid Description Amniotic Fluid Description: positive: Clear - Laceration Laceration: positive: Vaginal - Suture Suture Type: positive: Vicryl Suture Size: positive: 3-0 - Delivery Outcome Delivery Outcome: positive: Livebirth - Albertson Albertson: positive: Placed in direct skin contact with mother Albertson sex: positive: Male - Cord Cord: positive: 3 vessels - Placenta Placenta: positive: Intact - Estimated Blood Loss Estimated Blood Loss (in cc): 200 - Post Delivery Events Post Delivery Events: positive: No post delivery events - Delivery Comments (Free Text/Narrative) Delivery Comments (Free Text/Narrative): Preoperative Diagnoses 39 weeks gestation Advanced maternal age Postoperative Diagnoses Same Status post spontaneous vaginal delivery Delivery of live restrepo Patient was admitted at 39 weeks gestation for induction of labor. She received misoprostol for cervical ripening then had spontaneous rupture of membranes. After which she had oxytocin initiated. She received an epidural for pain control. She began pushing when complete. Throughout the morning, she pushed effectively, but made slow progress in the beginning. We discussed throughout the process of the extended second stage and discussed the risks of proceeding versus proceeding with section. As she was making good progress, we decided to continue pushing as fetus was tolerating labor well. We also discussed the risks of shoulder dystocia and possible procedures that could be performed in the instance of shoulder dystocia. She continue to push until complete and ready for delivery. Delivery Summary: Patient was placed in the dorsal lithotomy position. Upon maternal pushing the head was delivered atraumatically followed by the anterior shoulder, posterior shoulder, then the remainder of the 's body. A male infant was delivered with APGARS of 8 at 1 minute and 9 at 5 minutes. The was placed on its mother's chest . After the cord finished pulsating, the umbilical cord was clamped times two and cut. The placenta delivered intact with three vessel cord. Placenta was not sent to pathology. Thirty units of Pitocin were added to the IV fluid and allowed to run freely. Uterine massage was performed until uterus was deemed firm. Upon inspection of the perineum, she had a vaginal laceration on the right side that was repaired with 2 [id number] stitches of 3-0 Vicryl. There is a small stretching of the left labia, but was hemostatic, so did not require stitch. Uterus again massaged and found to be firm. Needle and sponge counts were correct. Patient was stable and allowed to recover in L&D room. was stable and remained in room with mother. weight is pending at this time.
[2023-08-06] MEDS ORDERED: LACTATED RINGERS 1,000 ML IV SCH (15:00)
[2023-08-06] MEDS: IBUPROFEN 600 MG TABLET PO SCH (15:37)
[2023-08-06] MEDS: ACETAMINOPHEN 500 MG TABLET PO SCH (15:38)
[2023-08-07] MEDS: DOCUSATE SODIUM 100 MG CAPSULE PO PRN (09:26)
[2023-08-07 19:48] VITALS: O2SAT 100
--- NOTE | 2023-08-07 20:39 | PROVIDER PROGRESS NOTE ---
Subjective - Prog Note Date Prog Note Date: 08/07/23 Prog Note Time: 12:30 - Subjective Pt reports feeling: Improved Subjective: walking around room. sore but ok. working on breast feeding. Objective - Vital Signs/Intake & Output Reviewed Vital Signs: Yes Vital Signs: Vital Signs x48h Temp Pulse Resp BP BP Pulse Ox 08/07/23 19:41 98.1 F 50 L 16 131/88 H 100 08/07/23 14:30 97.9 F 60 16 122/67 99 Intake & Output: Intake & Output 08/04/23 08/05/23 08/06/23 08/07/23 23:59 23:59 23:59 23:59 Intake Total 2597.917 Output Total 925 400 Balance 1672.917 -400 - Objective General Appearance: positive: No acute distress Abdomen: positive: Non-tender - Lab Results Fish Bones: 08/04/23 22:15 Assessment/Plan - Problem List (1) Vaginal delivery Impression: routine care. doing very well. discharge tomorrow.
[2023-08-08 08:55] VITALS: BP 131/83
--- NOTE | 2023-08-08 09:30 | DISCHARGE SUMMARY ---
"Discharge Summary Admit Date: 08/04/23 Discharge Date: 08/08/23 Discharging Provider: Zara Saleem MD Code Status: Attempt Resuscitation Condition at Discharge: Good Discharge Disposition: 01 Home, Self Care - DIAGNOSES Admission Diagnoses: term , advanced maternal age, large for gestational age at 90%ile. covid infection at 21 weeks GA. prolonged 2nd stage of labor vaginal delivery Discharge Diagnoses with Status of Each Condition: s/p vaginal delivery without maternal complications. - HPI History of Present Illness: 38 y/o with first baby. c/b above factors. here for labor in duction at term. - CONSULTS | PROCEDURES Procedures: vaginal delivery with epidural anesthesia - HOSPITAL COURSE Hospital Course: patient presents for induction Saturday night. received 5 doses of misoprostol. SROM occurred Saturday. epidural and then pitocin. Progressed to complete by Saturday am. She began pushing and then pushed for 5 hours before a normal vaginal delivery. No shoulder dystocia. Made continual progress during pushing. Baby did well from but was noted to have pain in his torso. Xray reviewed 2 posterior ribs were broken. Mom's recovery was unremarkable and they were both discharged home on PPD #2. - ALLERGIES Allergies/Adverse Reactions: Allergies Allergy/AdvReac Type Severity Reaction Status Date / Time No Known Drug Allergies Allergy Verified 08/04/23 23:28 - MEDICATIONS Home Medications: Ambulatory Orders Medication Instructions Recorded Confirmed Acetaminophen 650 mg PO Q4HR PRN #30 ea 08/08/23 Docusate Sodium 100Mg Capsule 100 - 200 mg PO BID PRN #60 cap 08/08/23 [Colace 100Mg Capsule] Ibuprofen [Motrin] 600 mg PO Q6H PRN #30 tab 08/08/23 - PHYSICAL EXAM AT DISCHARGE General Appearance: positive: No acute distress Respiratory: positive: No respiratory distress Cardiovascular: positive: Regular rate & rhythm Extremities: positive: No pedal edema - LABS Result Diagrams: 08/04/23 22:15 - FOLLOW UP Follow Up: with OB in 1-2 weeks"
--- NOTE | 2023-08-08 15:25 | Labor Flowsheet ---
Labor Flowsheet Datetime Report Generated by CPN: 08/08/2023 15:24 Datetime: 08/08/2023 08:24 VITAL SIGNS NBP Sys/Cristina/Mean (mmHg): 131 : 83 : 89 Pulse: 58 Datetime: 08/07/2023 19:34 SpO2 (%): 99 Datetime: 08/06/2023 14:06 Patient Care Comments: placenta Datetime: 08/06/2023 14:02 MEDICATIONS Pitocin (milliunits): Increased to @ 500 Medication Comments: Post bolus Datetime: 08/06/2023 14:00 Stage of : Recovery Datetime: 08/06/2023 13:57 Comments: Delivered Datetime: 08/06/2023 13:45 UTERINE ACTIVITY Monitor Mode: External Frequency (min): 1-3 Quality: Strong Duration (sec): 50-100 Pattern: Normal: <= 5 Contractions in 10 Minutes Resting Tone (Palpate): Relaxed Pitocin Checklist: At Least 1 Acceleration of 15 bpm x 15 Seconds in 30 Minutes or Adequate Variabi lity; No More than 1 Late Deceleration Occurred in Past 30 Minutes; No More than 2 Variable Decelerat ions > 60 Seconds in Duration and decreasing >60 bpm in 30 minutes; No More than 5 Uterine Contractio ns in 10 Minutes for any 20 Minute Interval; Uterus Palpates Soft between Contractions Variability: Moderate 6-25 bpm Datetime: 08/06/2023 13:30 ASSESSMENT A Monitor Mode: Telemetry FHR Baseline Rate : 145 Accelerations: None Decelerations: Early; Late Category: Category II Datetime: 08/06/2023 13:23 LaborFlag: Labor Datetime: 08/06/2023 13:15 Contraction Comments: pushing with contractions Datetime: 08/06/2023 13:13 Communication Comments: RN Crissy assume care Datetime: 08/06/2023 12:27 COMMUNICATION Communication: Provider at Bedside Datetime: 08/06/2023 12:22 Stage 2 Comments: attempted side lying, too uncomfortable for pt. moved back to lithotomy Datetime: 08/06/2023 11:55 Temperature (C): 36.7 Datetime: 08/06/2023 11:12 STAGE 2 Pushing: Coached on Pushing; Urge to Push Pushing Position: Pushing with Contractions Datetime: 08/06/2023 08:36 Pushing Progress: Descent with Pushing Datetime: 08/06/2023 08:09 I/O Interventions: Curiel Discontinued Datetime: 08/06/2023 08:05 VAGINAL EXAM Dilatation (cm): 10.0 Effacement (%): 100 Station: 1 Exam by: Berto Zavala, SEAM CLOSER Vaginal Exam Comments: Complete Datetime: 08/06/2023 07:47 Antiemetics/Antacids: Zofran (mg) @ 4 Datetime: 08/06/2023 07:16 Patient Position/Activity: Left Extreme Datetime: 08/06/2023 06:59 Actions for Decelerations: Other Datetime: 08/06/2023 06:45 Anesthesia Level Check: T7 Datetime: 08/06/2023 06:30 Monitor Interventions for UA: [place] Adjusted Datetime: 08/06/2023 03:00 FHR Baseline Changes: Tachycardia Datetime: 08/06/2023 01:54 Provider Reviewed Strip: No Strip Reviewed by: Mary Ndiaye Provider Notified (Name): NEWS TECHNICAL DIRECTOR Trevino Notification Reason: Status Update; Status; Labor Status; Maternal Vital Sign Change; Other Datetime: 08/06/2023 01:50 ANESTHESIA Anesthesia Plans: Epidural Datetime: 08/06/2023 01:47 Vaginal Bleeding: Normal Show Cervix, Consistency: Soft Cervix, Position: Midposition Datetime: 08/06/2023 01:39 Magnesium/Antihypertensives: Ephedrine IV (mg) @ 10mg Datetime: 08/06/2023 01:00 Monitor Interventions for FHR: Ultrasound Adjusted Datetime: 08/06/2023 00:27 Epidural Procedure: Test Dose Datetime: 08/06/2023 00:22 PROCEDURE TIME OUT Procedure Verify: Correct Patient Identity; Correct Side and Site are Marked; Accurate Procedure Co nsent Form; Agreement on Procedure to be Done; Correct Patient Position; Relevant Images and Results are Properly Labeled and Displayed Epidural Positioning: Sitting Datetime: 08/06/2023 00:18 Anesthesia Comments: AT bedside. Datetime: 08/05/2023 23:27 Analgesics/Sedatives: Fentanyl (mcg) @ 50 Datetime: 08/05/2023 22:46 Membrane Status: Ruptured Membranes Rupture Method: Spontaneous Amniotic Fluid Color: Clear Amniotic Fluid Amount: Moderate Amniotic Fluid Odor: Normal Datetime: 08/05/2023 22:24 Cervical Ripening Agents: Cytotec @ Datetime: 08/05/2023 21:35 Hygiene: Shower Datetime: 08/05/2023 13:45 PATIENT CARE Oxygen Method: Room Air Datetime: 08/05/2023 12:48 Respirations: 14 Datetime: 07/25/2023 09:30 MATERNAL ASSESSMENT Level of Consciousness: Alert DTR's/Clonus: No Clonus Headache: Denies Datetime: 07/25/2023 09:19 Membranes Ruptured Date/Time: 08/05/2023 22:46
== END 2023-08-08 15:00 | disposition home or self-care (01) | DRG 807 ==
LOC: WFO 20:03 → FBP 20:04 → WFO 21:19 → FBP 21:19
PROVIDERS: ADMIT Obstetrics & Gynecology; ATTEND Obstetrics & Gynecology
PROC: 3E0P7VZ Introduction of Hormone into Female Reproductive, Via Natural or Artificial Opening (ICD-10-PCS; principal; 2023-08-04)
PROC: 10E0XZZ Delivery of Products of Conception, External Approach (ICD-10-PCS; 2023-08-06)
PROC: 0KQM0ZZ Repair Perineum Muscle, Open Approach (ICD-10-PCS; 2023-08-06)
DX: O63.1 Prolonged second stage (of labor) (principal); Z37.0 Single live birth; Z3A.39 39 weeks gestation of pregnancy; O99.214 Obesity complicating childbirth; Z86.16 Personal history of COVID-19; O99.344 Other mental disorders complicating childbirth; F41.9 Anxiety disorder, unspecified
CPT/HCPCS: 36415; 59409; 85025; 86850; 86900; 86901; A9270; J7120

== ENCOUNTER 2023-11-02 11:57 | Emergency (ER) | payer BC ==
[2023-11-02 12:21] VITALS: BP 130/77; O2SAT 99
--- NOTE | 2023-11-02 12:59 | ED Physician Documentation ---
History of Present Illness - Stated complaint Stated Complaint: EXPOSURE TO BAT - Chief complaint Chief Complaint: Exposure - Additonal information Additional information: 38-year-old female 2 months presents emergency department with her and who are also checking in for bat exposure. Patient says that she is fairly confident that she did not make contact with the bat she woke with a bat in the room flying around her was able to collect it and she is hoping to avoid any sort of rabies vaccine if they are at all able to do so. She has no scratches no bite gaming to her skin or body. She is up-to-date with her tetanus shot. PD PAST MEDICAL HISTORY - Past Medical History Cardiovascular: None Respiratory: None Endocrine/Autoimmune: None GI: GERD Musculoskeletal: None Derm: None - Past Surgical History Past Surgical History: No - Present Medications Home Medications: Ambulatory Orders Medication Instructions Recorded Confirmed No Known Home Medications 11/02/23 11/02/23 - Allergies Allergies/Adverse Reactions: Allergies Allergy/AdvReac Type Severity Reaction Status Date / Time No Known Drug Allergies Allergy Verified 11/02/23 12:16 - Social History Does the pt smoke?: No Smoking Status: Never smoker Does the pt drink ETOH?: No Does the pt have substance abuse?: No - Immunizations Immunizations are current?: Yes - POLST Patient has POLST: No PD ED PE NORMAL - Vitals Vital signs reviewed: Yes - General General: Alert and oriented X 3, No acute distress, Well developed/nourished - Derm Derm: Normal color, Warm and dry, No rash Results - Vitals Vitals: Vital Signs - 24 hr 11/02/23 12:13 Temperature 36.7 C Heart Rate 77 Respiratory 18 Rate Blood Pressure 130/77 O2 Saturation 99 Oxygen O2 Source Room air PD Medical Decision Making - ED course ED course: 38-year-old female presents emergency department for exposure to bat. She checks into the emergency department her and child who also had bad exposure although patient says that she is Confident that she had absolutely no contact with the bat.. Patients was able to catch the bat it is alive and at his house in a tub and he and his are hoping to not go through the rabies vaccine and IgG if not warranted. SHe is up-to-date with his tetanus shot. I spoke with the [facility] who is named Belkis and said that if they have the bat, and is not acting rabid it is safe to discharge them home she will reach out to [facility] after-hours phone number for [facility] to go and collect the bat and bring the bat to the Department of [facility] for further testing on Saturday it is safe for them to forego any testing. If they go home and find that there is a second bat in the house they are told to present back to the emergency department immediately for the rabies vaccine and IgG. Contact information was given to [facility] for [place] and Gene and they were told that they do not hear from anyone to present back to the emergency department but watched [facility] was quite reassuring that they are aggressively reaching out to people to go collect the back from their private residence. All questions answered patient is safe for discharge at this time. Departure - Departure Disposition: Home, Self Care Clinical Impression: Exposure to bat without known bite Condition: Good Instructions: Rabies Comments: Thank you for trusting us with your care. I have spoke with [facility] who has yours and your 's contact information. They advised that it is safe for you to go home and safe for you to wait until Saturday to have the bat tested they are reaching out to after-hours [facility] to see if someone is able to come this weekend to properly box up the bat to bring in for testing. They will be contacting you as soon as they get a hold of someone. As we discussed if you go home and you see a second bat in your house please come back to the emergency department immediately for immunoglobulin as well as vaccines. Forms: PCP List Discharge Date/Time: 11/02/23 13:49
== END 2023-11-02 13:49 | disposition home or self-care (01) ==
LOC: ED 11:57
DX: Z20.3 Contact with and (suspected) exposure to rabies (principal)
CPT/HCPCS: 99281; 99284